=== PATIENT | male | born 1990 ===

== ENCOUNTER 2020-10-19 17:26 | Outpatient (CLI) | payer OTHER, SELFPAY | END 2020-10-19 17:27 | disposition home or self-care (01) | LOC: ANHCOVIDVC 17:26 | PROVIDERS: PCP Family Medicine | DX: Z23 Encounter for immunization (principal) | CPT/HCPCS: 0001A; 91300 ==

== ENCOUNTER 2020-11-09 17:29 | Outpatient (CLI) | payer OTHER, SELFPAY | END 2020-11-09 17:30 | disposition home or self-care (01) | LOC: ANHCOVIDVC 17:29 | PROVIDERS: PCP Family Medicine | DX: Z23 Encounter for immunization (principal) | CPT/HCPCS: 0002A; 91300 ==

== ENCOUNTER 2023-10-02 09:18 | Outpatient (CLI) | payer OTHER, SELFPAY ==
--- NOTE | 2023-10-09 16:10 | WPDSLEEPSTUD ---
Sleep Study Date of Study: 10/02/23 Ordering Provider: Ethel Choudhary PA-C Interpreting Physician: Kera العلي DO Sleep Study Type: Polysomnogram Height: 1.68 m Weight: 131.542 kg Body Mass Index: 46.7 Neck Circumference (inches): 19.75 Galt: 20 Reason for Sleep Study Snoring, unrefreshing sleep Sleep History The patient is a 33-year-old male with hypertension and morbid obesity that had a sleep study ordered by his primary care for evaluation of sleep apnea. The patient occasionally awakens from sleep short of breath. He rarely awakens at night with heartburn, belching or cough. He constantly snores loudly enough that others complain. He rarely has trouble sleeping when he has a cold. He rarely wakes up gasping for air throughout the night. He frequently has breathing problems at night observed by himself or others. He rarely sweats excessively at night. He denies having heart palpitations or irregular heartbeats during the night. He constantly falls asleep during the day and occasionally falls asleep while driving. He denies cataplexy. He rarely has trouble at school or work due to sleepiness. He rarely feels unable to move while waking up or falling asleep. He denies experiencing vivid dreamlike scenes upon awakening or falling asleep. He denies feeling afraid of going to sleep. He rarely has nightmares. He occasionally remembers his dreams. He denies having thoughts racing through his mind. He denies feeling sad, depressed or anxious. He denies having muscular tension. He occasionally notices parts of his body jerk. He occasionally kicks during the night. He denies having crawling and aching feelings in his legs and denies having leg pain during the night. He denies grinding his teeth during sleep and denies awakening with morning jaw pain. He denies being bothered by pain during the day and denies being awakened by pain during the night. He denies waking up feeling stiff in the morning. He denies waking up with sore or achy muscles. He denies waking up with pain in the neck, spine and other joints. He goes to bed at 10:00 p.m. on weekdays and 11:00 p.m. on the weekends. He can fall asleep relatively quickly. He wakes up once throughout the night to take his dogs out or take care of his child. He is able to fall back asleep within 10 minutes. He wakes up at 5:30 a.m. on weekdays and at 6:30 a.m. on the weekends. He typically gets 6-8 hours of sleep per night. He does not stay in bed after waking up in the morning. He currently lives with his and child. He denies consuming any caffeinated beverages within 2 hours of bedtime. He denies engaging in physical exercise before bedtime. He will watch television before falling asleep. He will take naps in the afternoon or the evening and they are refreshing. He consumes 3 cups of caffeinated coffee per day. He denies tobacco, alcohol and recreational drug use. [facility] Past Medical History Medical History Cholecystectomy planned Morbid obesity AKASH (obstructive sleep apnea) Surgical History Surgical History Hx of cholecystectomy Family History Family History Father Hypertension Mother Hypertension Sibling ADD (attention deficit disorder) Social History Social History Smoking status: Never smoker Second hand tobacco smoke exposure: Yes Alcohol intake: current Substance use: never Substance use type: does not use Do You Feel Safe in your Home?: Yes Lack of Transportation: No Lack of Food: Never True Current Housing: I Have Housing Concerned About Future Housing: No Difficulty Paying Gas/Electric Bills: No Difficulty Paying for Meds: No Currently Unemployed: No Education: Trade/Vo
[2023-10-09 18:45] VITALS: BMI 46.7
== END 2023-10-03 06:09 | disposition home or self-care (01) ==
LOC: ANHCSM 09:19
PROVIDERS: PCP Family Medicine; Visit Provider Physician Assistant
DX: G47.33 Obstructive sleep apnea (adult) (pediatric) (principal); G47.10 Hypersomnia, unspecified; R53.83 Other fatigue; R06.83 Snoring; I10 Essential (primary) hypertension; E66.01 Morbid (severe) obesity due to excess calories; Z68.42 Body mass index [BMI] 45.0-49.9, adult
CPT/HCPCS: 95810

== ENCOUNTER 2024-06-24 10:50 | Emergency (ER) | payer OTHER, SELFPAY ==
[2024-06-24 11:01] VITALS: BP 142/89; PULSE 80; RESP 18; TEMP 35.8; O2SAT 99
--- NOTE | 2024-06-24 11:32 | ED.URI ---
HPI - URI/Sore Throat General Chief Complaint: Upper Respiratory Infection Stated Complaint: sore throat mucus Time Seen by Provider: 06/24/24 11:30 Source: patient, RN notes reviewed and old records reviewed Mode of arrival: ambulatory Limitations: no limitations History of Present Illness HPI Narrative: 34-year-old male presents to the [facility] with concerns of a sore throat, mucus production, sinus congestion for 2 weeks. Patient states symptoms have gotten better however still with a scratchy throat. Denies any fever. Does have a cough. Has taken cold medication Onset (ago): week(s) (2) Related Data Allergies Allergy/AdvReac Type Severity Reaction Status Date / Time amoxicillin Allergy Mild Rash Verified 06/24/24 11:48 Review of Systems Review of Systems: All systems reviewed & are unremarkable except as noted in HPI and below Constitutional: Constitutional: Reports no additional constitutional complaints ENT: Reports as per HPI Cardiovascular: Cardiovascular: Reports no additional cardiovascular complaints, Denies chest pain and Denies dyspnea Respiratory: Respiratory: Reports as per HPI, Denies chest congestion, Reports cough and Denies dyspnea Musculoskeletal: Musculoskeletal: Reports no additional musculoskeletal complaints Integumentary/Breasts: Skin/Breast: Reports system reviewed and no additional complaints, except as docu PMFSH Past Medical History Medical History Otitis externa Weight gain Screening for STD (sexually transmitted disease) Cholecystectomy planned Screening, lipid AKASH (obstructive sleep apnea) Surgical History Surgical History Hx of cholecystectomy Family History Family History Father Hypertension Mother Hypertension Sibling ADD (attention deficit disorder) Social History Social History Smoking status: Never smoker Smokeless tobacco user: chewing tobacco Second hand tobacco smoke exposure: Yes Alcohol intake: current Substance use: never Substance use type: does not use Do You Feel Safe in your Home?: Yes Lack of Transportation: No Lack of Food: Never True Current Housing: I Have Housing Concerned About Future Housing: No Difficulty Paying Gas/Electric Bills: No Difficulty Paying for Meds: No Currently Unemployed: No Education: Trade/Vocational Certificate Difficulty w/ Childcare or Family Care: No Living arrangements: with family Occupation/Education: occupation 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 There is no relevant family history pertinent to the patient complaint. Exam Const: General: cooperative, healthy appearing, comfortable, no acute distress, well developed, alert and well nourished Nutritional Appearance: well nourished Orientation/consciousness: patient oriented x3 Limitations: no limitations HENMT: Head: normal to inspection Ears: hearing grossly normal bilaterally, external ears normal, TM's normal bilaterally, EAC's normal, mastoids normal and no periauricular adenopathy Mouth: Yes Normal oral and palatal mucosa present, Yes lip normal, Yes tongue normal and Yes moist mucous membranes Throat: posterior oropharynx normal, uvula midline, postnasal drainage and no uvular edema Eyes: General: appearance normal, both eyes and all related structures Alignment and Position: alignment normal Neck: Neck: normal visual inspection, full ROM, no lymphadenopathy and no meningeal signs Chest: Chest palpation & inspection: normal inspection of the chest Resp: Effort & Inspection: normal respiratory effort and able to speak in complete sentences Auscultation: clear to auscultation bilaterally, no crackles, no rales, no rhonchi and no wheezes Cardio: Rate: regular rate Skin: General skin exam: normal color and no rashes or lesions noted Neuro: General: patient oriented x3, gait normal, moves all extremities and no meningeal signs Cognition (Neuro): normal cognition Speech: normal speech Gait exam (Neuro): Normal gait present Extrem: General: normal to inspection, full ROM, capillary refill normal and normal gait Psych: Appearance: grossly normal and well kempt Mental Status: mental status grossly normal Speech and movement: Normal speech and movement present and Clear speech present Affect: normal affect Attitude: cooperative Course Course Level of Care: Express Care Visit Vital Signs Vital signs: Vital Signs Temperature 96.4 F L 06/24/24 11:01 Pulse Rate 80 06/24/24 11:01 Respiratory Rate 18 06/24/24 11:01 Blood Pressure 142/89 H 06/24/24 11:01 Pulse Oximetry 99 06/24/24 11:01 Oxygen Delivery Room Air 12/31/24 11:01 Temperature 96.4 F L 06/24/24 11:01 Pulse Rate 80 06/24/24 11:01 Respiratory Rate 18 06/24/24 11:01 Blood Pressure 142/89 H 06/24/24 11:01 Pulse Oximetry 99 06/24/24 11:01 Oxygen Delivery Room Air 06/24/24 11:01 Reviewed MDM - URI/Sore Throat MDM Narrative Medical decision making narrative: Patient sitting comfortably in exam room. Nontoxic, vitals stable. Patient was symptoms x2 weeks however is improving. Patient most concern for strep throat, strep test is negative, will culture patient appropriate for outpatient treatment of viral URI Discharge instructions reviewed with patient, as well as provided in writing per nursing staff. The instructions also include specific and strict return/GO TO THE ER as well as f/u information. All questions have been answered, and the patient deny any further questions with discharge and discharge plan. Some parts of this dictation were generated by voice recognition software and may contain typographical and/or grammatical inaccuracies. Differential Diagnosis Differential diagnosis: Likely upper respiratory infection, otitis media, sinusitis, viral infection, bronchitis, influenza and pharyngitis Lab Data Labs: Negative strep test Critical Care Time Critical Care Time Critical Care Time: No Discharge Plan Discharge Clinical Impression: Post-nasal drainage Upper respiratory infection Qualifiers: URI type: unspecified viral URI Qualified Code(s): J06.9 - Acute upper respiratory infection, unspecified Patient Disposition: Home, Self-Care Condition: Stable Instructions: Antibiotic Form, Upper Respiratory Infection (ED), Postnasal Drip (DC) Additional Instructions: Your rapid strep swab was negative today at [facility]. A throat culture will be sent to the laboratory for further testing. If the test is positive, you will receive a phone call within 48 hours and an appropriate antibiotic will be initiated at that time. Your symptoms are likely due to a viral illness, which is not treated with antibiotics. Typically viral infections last 7-10 days, can linger for couple of weeks. It is very important to treat your symptoms. Drink plenty of water, Gatorade, Pedialyte, ice pops or Jell-O. -Alternate Tylenol and Motrin per package directions for fever or pain. You can alternate every 4 hours -Antihistamine medication such as Zyrtec/Claritin/Noemi during the day can help improve symptoms. -doing daily nasal irrigations can help relieve pressure your sinuses. Things like a Neti pot -Use Flonase twice a day for 5 days then daily to help reduce the inflammation and dry up your sinuses. -You can also use Mucinex. Be sure to drink plenty of water with this medication at least 8 ounces with every dose and it is important to drink 8 to 10 glasses of water per day. Water is a natural decongestant -Eat and drink things that are easy to swallow, like tea or soup, or popsicles. -Oral rinses such as: Salt water gargles and/or may use topical anesthetic (eg. Chloraseptic spray) or lozenges to relieve dryness or throat pain). -Frequent hand washing or hand bicycle ii assembler is one of the best ways to prevent spread of infection. -Using a vaporizer or humidifier at night will also help thin secretions and help with coughing up phlegm. -Follow up with primary care provider in 7-10 days if condition is not improving - For new or worsening symptoms go directly to the nearest ER Patient Language: Somali Prescriptions: New methylprednisolone [Medrol (Phi)] 4 mg tablets,dose pack See Rx Instructions PO .COMPLEX Qty: 21 0RF Rx Instructions: orally per package directions No Action lisinopril 20 mg tablet 20 mg PO DAILY Qty: 90 1RF hydrochlorothiazide 25 mg tablet 25 mg PO DAILY Qty: 90 1RF Follow-up/Referrals: Thomas Mujica MD [Primary Care Provider] - Stand Alone Forms: Work/School Release IP Time of Disposition: 12:05
== END 2024-06-24 12:08 | disposition home or self-care (01) ==
PROVIDERS: Emergency Provider Nurse Practitioner; PCP Family Medicine
DX: R09.82 Postnasal drip (principal); J06.9 Acute upper respiratory infection, unspecified; F17.220 Nicotine dependence, chewing tobacco, uncomplicated
CPT/HCPCS: 87081; 99213; G0463